=== PATIENT | female | born 1960 | race Two or more races ===

== ENCOUNTER 2017-02-19 23:15 | Emergency (ER) | payer SELFPAY ==
[~2017-02-19] VITALS: Ht 160 cm; Wt 99.8 kg
[2017-02-19 23:40] LABS: BASO % 1 % (0-3); EOS % 3 % (0-3); HEMATOCRIT 36.1 % (36.0-47.0); HEMOGLOBIN 11.8 g/dL (12.0-15.5); LYMPH # 3.5 x10^3/uL (1.0-4.8); LYMPH % 46 % (24-48); MEAN CORPUSCULAR HEMOGLOBIN 29 pg (25-35); MEAN CORPUSCULAR HGB CONC 33 g/dL (31-37); MEAN CORPUSCULAR VOLUME 89 fL (79-100); MONO % 8 % (0-9); NEUT % 44 % (31-73); PLATELET COUNT 240 x10^3/uL (140-400); RED BLOOD COUNT 4.07 x10^6/uL (3.50-5.40); RED CELL DISTRIBUTION WIDTH 14.1 % (11.5-14.5); WHITE BLOOD COUNT 7.7 x10^3/uL (4.0-11.0)
[2017-02-19 23:50] LABS: CALCIUM 9.5 mg/dL (8.5-10.1); GFR 57.8; POTASSIUM 3.7 mmol/L (3.5-5.1)
[2017-02-19 23:56] LABS: ALBUMIN 3.5 g/dL (3.4-5.0); ALBUMIN/GLOBULIN RATIO 0.8 (1.0-1.7); TOTAL BILIRUBIN 0.6 mg/dL (0.2-1.0); TOTAL PROTEIN 8.1 g/dL (6.4-8.2)
[2017-02-20] MEDS ORDERED: LABETALOL 20 MG/4 ML DISP.SYRIN. IVP ONE ×2 (01:15)
[2017-02-20] MEDS ORDERED: cloNIDine HCL 0.1 MG TABLET PO ONE (01:15)
[2017-02-20] MEDS ORDERED: FUROSEMIDE 20 MG/2 ML VIAL. IVP ONE (02:00)
[2017-02-20 02:40] VITALS: BP 175/78
--- NOTE | 2017-02-20 04:56 | PHYS DOC ---
Past Medical History Past Medical History: Hypertension Past Surgical History: Hysterectomy Alcohol Use: Rarely Drug Use: None Adult General Chief Complaint Chief Complaint: SHORTNESS OF BREATH HPI HPI Patient is a 56 year old Japanese speaking female with poorly controlled hypertension who presents with shortness of breath when supine, and headache. Patient noted to be hypertensive 220/100. She is compliant with her LOAN inhibitor. Patient sees medical care in [place] and does not have a local primary care physician. Denies dizziness, chest pain, increased leg pain or swelling. No abdominal pain. No nausea vomiting or sweats. No fever chills. No other acute symptoms or complaints. History obtained from the patient's spouse who assist with translation. Review of Systems Review of Systems Review symptoms as per history of present illness. All other review symptoms are negative. Current Medications Current Medications Current Medications Medications (Trade) Dose Ordered Sig/Cuca Start Time Stop Time Status Last Admin Dose Admin Clonidine HCl (Catapres) 0.1 mg 1X ONCE 02/20/17 01:15 02/20/17 01:16 DC 02/20/17 01:23 0.1 MG Furosemide (Lasix) 20 mg 1X ONCE 02/20/17 02:00 02/20/17 02:02 DC 02/20/17 02:20 20 MG Labetalol HCl (Normodyne) 20 mg 1X ONCE 02/20/17 01:15 02/20/17 01:16 DC 02/20/17 01:23 20 MG Allergies Allergies Allergies Coded Allergies Type Severity Reaction Last Updated Verified No Known Drug Allergies 02/19/17 No Physical Exam Physical Exam Constitutional: Well developed, well nourished, no acute distress, non-toxic appearance. [] HENT: Normocephalic, atraumatic, bilateral external ears normal, oropharynx moist, no oral exudates, nose normal. [] Eyes: PERRLA, EOMI, conjunctiva normal, no discharge. [] Neck: Normal range of motion, no tenderness, supple, no stridor. [] Cardiovascular:Heart rate regular rhythm, no murmur [] Lungs & Thorax: Bilateral breath sounds clear to auscultation [] Abdomen: Bowel sounds normal, soft, no tenderness, no masses, no pulsatile masses. [] Skin: Warm, dry, no erythema, no rash. [] Back: No tenderness, no CVA tenderness. [] Extremities: No tenderness, no cyanosis, no clubbing, ROM intact, no edema. [] Neurologic: Alert and oriented X 3, normal motor function, normal sensory function, no focal deficits noted. [] Psychologic: Affect normal, judgement normal, mood normal. [] Current Patient Data Vital Signs Vital Signs Date Time Temp Pulse Resp B/P (MAP) Pulse Ox O2 Delivery O2 Flow Rate FiO2 02/20/17 02:40 60 16 175/78 (110) 95 Room Air 02/19/17 23:24 97.7 97.7 Lab Values Laboratory Tests Test 02/19/17 23:30 White Blood Count 7.7 x10^3/uL (4.0-11.0) Red Blood Count 4.07 x10^6/uL (3.50-5.40) Hemoglobin 11.8 g/dL (12.0-15.5) L Hematocrit 36.1 % (36.0-47.0) Mean Corpuscular Volume 89 fL (79-100) Mean Corpuscular Hemoglobin 29 pg (25-35) Mean Corpuscular Hemoglobin Concent 33 g/dL (31-37) Red Cell Distribution Width 14.1 % (11.5-14.5) Platelet Count 240 x10^3/uL (140-400) Neutrophils (%) (Auto) 44 % (31-73) Lymphocytes (%) (Auto) 46 % (24-48) Monocytes (%) (Auto) 8 % (0-9) Eosinophils (%) (Auto) 3 % (0-3) Basophils (%) (Auto) 1 % (0-3) Neutrophils # (Auto) 3.3 x10^3uL (1.8-7.7) Lymphocytes # (Auto) 3.5 x10^3/uL (1.0-4.8) Monocytes # (Auto) 0.6 x10^3/uL (0.0-1.1) Eosinophils # (Auto) 0.2 x10^3/uL (0.0-0.7) Basophils # (Auto) 0.0 x10^3/uL (0.0-0.2) Sodium Level 142 mmol/L (136-145) Potassium Level 3.7 mmol/L (3.5-5.1) Chloride Level 106 mmol/L (98-107) Carbon Dioxide Level 28 mmol/L (21-32) Anion Gap 8 (6-14) Blood Urea Nitrogen 23 mg/dL (7-20) H Creatinine 1.0 mg/dL (0.6-1.0) Estimated GFR (Cockcroft-Gault) 57.8 BUN/Creatinine Ratio 23 (6-20) H Glucose Level 147 mg/dL (70-99) H Calcium Level 9.5 mg/dL (8.5-10.1) Total Bilirubin 0.6 mg/dL (0.2-1.0) Aspartate Amino Transferase (AST) 19 U/L (15-37) Alanine Aminotransferase (ALT) 22 U/L (14-59) Alkaline Phosphatase 151 U/L (46-116) H Troponin I Quantitative < 0.017 ng/mL (0.000-0.055) GQ-Xln-G-Type Natriuretic Peptide 942 pg/mL (0-124) H Total Protein 8.1 g/dL (6.4-8.2) Albumin 3.5 g/dL (3.4-5.0) Albumin/Globulin Ratio 0.8 (1.0-1.7) L Laboratory Tests 02/19/17 23:30 Laboratory Tests 02/19/17 23:30 EKG EKG [EKG: Sinus rhythm, rate 80, occasional PVC, no acute ST-T wave changes. Interpretation by this ED physician.] Radiology/Procedures Radiology/Procedures [Chest x-ray: No acute infiltrate.] Course & Med Decision Making Course & Med Decision Making Pertinent Labs and Imaging studies reviewed. (See chart for details) [Patient short of breath with headache without evidence of congestive heart failure. Headache, dyspnea resolved with a labetalol, clonidine and Lasix. Blood pressure significantly improved. Will continue home patient treatment with recommendations of PCP and cardiology follow-up. Return precautions reviewed..] Dragon Disclaimer Dragon Disclaimer This electronic medical record was generated, in whole or in part, using a voice recognition dictation system. Departure Departure Impression: Primary Impression: Congestive heart failure Additional Impression: Hypertension Disposition: 01 HOME, SELF-CARE Condition: GOOD Referrals: PORTIA LLOYD MD Patient Instructions: Heart Failure, [id number], Hypertension Additional Instructions: Jessica was evaluated in the emergency department for elevated blood pressure and shortness of breath. Chest were x-ray, EKG and lab works are performed which show congestive heart failure likely caused by acute elevation in blood pressure. Please continue current blood pressure medication and take newly prescribed medications as directed. Please contact Dr. Arce's office and schedule a follow-up appointment as soon as possible. Please also establish with a local primary care physician. In the meantime, return to the ED if new or worsening symptoms. Problem Qualifiers EVELYN HALL DO Feb 20, 2017 04:56
--- NOTE | 2017-02-20 07:57 | EKG ---
[facility] [address] [place] [address] Test Date: 2017-02-19 Test Time: 23:20:08 Pat Name: ANABELLA KINNEY Department: Room: Gender: F Engineering Director: : [id number] Requested By: EVELYN HALL Order Number: [id number] Reading MD: Tosin Poe Measurements Intervals [place] Rate: 80 P: 25 AK: 176 QRS: 52 QRSD: 116 T: 62 QT: 406 QTc: 472 Interpretive Statements SINUS RHYTHM VENTRICULAR PREMATURE COMPLEX(ES) INCOMPLETE RIGHT BUNDLE BRANCH BLOCK QRS(T) CONTOUR ABNORMALITY CANNOT RULE OUT INFERIOR MYOCARDIAL DAMAGE Electronically Signed On 02-22-2017 10:15:27 CDT by Tosin Poe
--- NOTE | 2017-02-20 08:06 | RAD ---
Portable chest, 02/19/2017: History: Chest pain, shortness of breath The heart is at the upper limits of normal in size. There are prominent epicardial fat pads. No pulmonary consolidation is seen. There is no evidence of pleural fluid. IMPRESSION: 1. Borderline cardiomegaly. 2. No acute abnormality is detected.
== END 2017-02-20 03:00 | disposition home or self-care (01) ==
LOC: ER 23:15
DX: I11.0 Hypertensive heart disease with heart failure (principal); I50.9 Heart failure, unspecified
CPT/HCPCS: 36415; 71010; 80053; 83880; 84484; 85025; 93005; 96374; 96375; 96376; 99285; J3490